=== PATIENT | female | born 1960 | race Caucasian/White ===

== ENCOUNTER 2018-05-10 07:13 | Day surgery (SDC) | payer BC ==
[2018-05-10] MEDS ORDERED: FENTAnyl 50 MCG/ML VIAL (09:55)
[2018-05-10] MEDS ORDERED: MIDAZOLAM 1 MG/ML 2 ML INJ ×2 (09:55)
== END 2018-05-10 10:26 | disposition home or self-care (01) ==
LOC: GIL 07:13
DX: Z12.11 Encounter for screening for malignant neoplasm of colon (principal); K29.50 Unspecified chronic gastritis without bleeding; K64.8 Other hemorrhoids; E11.9 Type 2 diabetes mellitus without complications; I10 Essential (primary) hypertension
CPT/HCPCS: 43239; 82962; 88305; 88312